=== PATIENT | female | born 1970 | race American Indian/Alaskan Native ===

== ENCOUNTER 2017-10-03 10:10 | Outpatient (CLI) | payer BC ==
--- NOTE | 2017-10-06 11:54 | Mammography Report ---
Screening tomomammogram and 2-D mammography: 2-D images are compared to a comparable standard mammogram obtained in May 2013. The overall breast pattern is heterogeneous, symmetric, unremarkable, and generally unchanged. On the tomomammograms no additional findings in the right breast. A small circumscribed nodule identified in the lateral images on the left is not identified in the CC images and has no suspicious characteristics. CAD used. Impression: No suspicious findings. Generally stable pattern. Recommendation: Annual mammogram followup. BI-RADS CATEGORY: 1 = Negative ACR BI-RADS MAMMOGRAPHIC CODES: 0 = Needs additional imaging evaluation; 1 = Negative; 2 = Benign; 3 = Probably benign; 4 = Suspicious; 5 = Malignant; 6 = Known biopsy-proven malignancy COMMENT: 1. Dense breast tissue, i.e., adenosis, fibrocystic changes, etc., may obscure an underlying neoplasm. 2. Approximately 10% of cancers are not detected with mammography. 3. A negative mammography report should not delay biopsy if a clinically suspicious mass is present.
== END 2017-10-03 10:11 | disposition home or self-care (01) ==
LOC: MAMMO 10:10
PROVIDERS: ATTEND Obstetrics & Gynecology
DX: Z12.31 Encounter for screening mammogram for malignant neoplasm of breast (principal)
CPT/HCPCS: 77063; 77067

== ENCOUNTER 2018-02-17 06:11 | Observation (INO) | payer BC ==
--- NOTE | 2018-02-12 12:46 | Anesthesia Consultation ---
Anesthesia Consult and Med Hx Date of service: 02/12/18 - Airway Anesthetic Teeth Evaluation: Good ROM Head & Neck: Adequate Mental/Hyoid Distance: Adequate Mallampati Class: Class II Intubation Access Assessment: Good - Pulmonary Exam CTA: Yes - Cardiac Exam Cardiac Exam: RRR - Pre-Operative Health Status ASA Pre-Surgery Classification: ASA3 Proposed Anesthetic Plan: General Nerve Block: TAP - Pulmonary Hx Asthma: Yes (Seasonal, last treated several mos ago) - Cardiovascular System Hx Hypertension: Yes Hx Cardia Arrhythmia: Yes - Central Nervous System Hx Psychiatric Problems: Yes - Hematic Hx Anemia: Yes - Other Systems Hx Alcohol Use: Yes (Occas) Hx Cancer: No
[2018-02-12 12:51] LABS: Hematocrit 38.7 % (30.3-42.9); Hemoglobin 12.6 gm/dl (10.1-14.3); Mean Corpuscular HGB Conc 33 % (30-34); Mean Corpuscular Hemoglobin 27 pg (28-32); Mean Corpuscular Volume 83 fl (79-97); Platelet Count 218 K/mm3 (140-440); Red Blood Count 4.65 M/mm3 (3.65-5.03); Red Cell Distribution Width 24.9 % (13.2-15.2)
[2018-02-12 13:14] LABS: BUN/Creatinine Ratio 14; Blood Urea Nitrogen 11 mg/dL (7-17); Calcium 9.7 mg/dL (8.4-10.2); Hemolysis Index 17
[2018-02-12 14:21] LABS: Basophils % (Manual) 0 % (0.0-1.8); Eosinophils % (Manual) 0 % (0.0-4.3); Total Cells Counted 100
[2018-02-12 14:22] LABS: Anisocytosis 2+; Ovalocytes Few; Poikilocytosis 1+; Tear Drop Cells Rare
[2018-02-12 14:23] LABS: Schistocytes Rare
[2018-02-12 14:25] LABS: Platelet Estimate Cons
--- NOTE | 2018-02-16 19:19 | History and Physical Report ---
History of Present Illness Date of examination: 02/05/18 Chief complaint: Menorrhagia, anemia and fibroids History of present illness: Past History : 4 Term Births: 4 Living Children: 4 Para: 4 # 1 Delivery date: 1989 Comments: [id number] [employer] History Operations: Tubal Ligation Abnormal PAP: positive Uterine Anomaly: negative GASPER Exposure: negative Infection History HIV Risk Eval: no Personal hx. of genital herpes: no Hx of STD: chlamydia Other: trichomonas Active Medications (reviewed today): IBUPROFEN 800 MG ORAL TABLET (IBUPROFEN) 1 po TID (PRN) OXYCODONE-ACETAMINOPHEN 5-325 MG ORAL TABLET (OXYCODONE-ACETAMINOPHEN) 1-2po q6h prn ASPIRIN 81 MG ORAL TABLET (ASPIRIN) AMLODIPINE BESYLATE TABLET (AMLODIPINE BESYLATE TABS) FLECAINIDE ACETATE TABLET (FLECAINIDE ACETATE TABS) FERROUS SULFATE 325 (65 Fe) MG ORAL TABLET (FERROUS SULFATE) 1 po qd Current Allergies (reviewed today): No known allergies Past Medical History: Reviewed history from 01/07/2018 and no changes required: Neurologic Disorder migraines no auras Hypertension Borderline diabetes vitamin d deficiency Arrhythmia Atrial fibrillation (06/2017) 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 - Entered On: 07/19/2015 Other family member - Has No Family History of Biliary Tract Cancer - Entered On : 12/01/2017 Other family member - Has No Family History of Brain Cancer - Entered On: 2017 Other family member - Has No Family History of Spontaneous DVT-PE - Entered On: 12/01/2017 Other family member - Has No Family History of Kidney/Urinary Tract Cancer - Entered On: 12/01/2017 Other family member - Has No Family History of Pancreatic Cancer - Entered On: Other family member - Has No Family History of Stomach Cancer - Entered On: 2017 Other family member - Has No Family History of Small Bowel Cancer - Entered On: 12/01/2017 Other family member - Has No Family History of Uterine Cancer - Entered On: 2017 Aunt - Has Family History Colon Cancer - Entered On: 01/07/2018 Aunt - Has Family History Breast Cancer - maternal - Entered On: 01/07/2018 General Comments - FH: No Family History of DVT/PE on OCP Family History of Hypertension father, brothers Social History: Reviewed history from 08/30/2016 and no changes required: Patient is Smoking History: Patient has never smoked. Risk Factors: Smoked Tobacco Use: Never smoker Smokeless Tobacco Use: Never Passive smoke exposure: no Drug use: no HIV high-risk behavior: no Alcohol use: yes Exercise: yes Seatbelt use: 100 % Mammogram History: Date of Last Mammogram: 04/28/2016 PAP Smear History: Date of Last PAP Smear: 10/01/2017 Previous Tobacco Use: Signed On - 01/07/2018 Smoked Tobacco Use: Never smoker Smokeless Tobacco Use: Never Passive smoke exposure: no Drug use: no HIV high-risk behavior: no Caffeine use: 1 drinks per day Previous Alcohol Use: Signed On - 01/07/2018 Alcohol use: yes Type: occ Drinks per day: social Exercise: yes Times per week: 4 Type of Exercise: walk Seatbelt use: 100 % Colonoscopy History: Date of Last Colonoscopy: 09/07/2015 Mammogram History: Date of Last Mammogram: 04/28/2016 PAP Smear History: Date of Last PAP Smear: 10/01/2017 Review of Systems General Denies fever, chills, sweats, anorexia, fatigue, weakness, malaise, weight loss and sleep disorder. Complains of menorrhagia and abnormal vaginal bleeding. Denies vaginal discharge, incontinence, dysuria, hematuria, urinary frequency, amenorrhea, pelvic pain, genital sores, decreased libido, painful periods, painful sex, urinary urgency, hot flashes, vaginal dryness, vaginal itching and vaginal odor. CV Denies chest pains, palpitations, syncope, dyspnea on exertion, orthopnea, PND and peripheral edema. Endo Denies cold intolerance, heat intolerance, polydipsia, polyphagia, polyuria and unusual weight change. Heme Denies abnormal bruising, bleeding and enlarged lymph nodes. Physical Exam Appearance: well developed, well nourished, no acute distress Other Exams Lungs: no rales, rhonchi, or wheezes Heart: S1, S2, no murmur, rub, or gallop Abdomen: soft, non-tender, no masses Skin: no ulcers, xanthomas Genitourinary Exam Vulva: normal, no lesions or discharge Urethral meatus: normal size and location, no lesions or discharge Urethra: no discharge Bladder: no cystocele Vagina: normal appearance, no discharge, lesions. No evidence of cystocele or rectocele. Cervix: normal appearance, no lesions, no discharge Uterus: fixed; Uterus Size: 15-16weeks Adnexa: no masses or tenderness Impression & Recommendations: Problem # 1: EXCESSIVE OR FREQUENT MENSTRUATION (ICD-626.2) (TWF97-Y20.0) Diagnosis explained to patient . Questions answered. Discussed with patient various medical and surgical therapies common for treatment: Hormonal/medical therapy,endometrial ablation or hysterectomy. She desires to proceed with hysterectomy Consent reviewed and signed . Possible laparoscopy or laparotomy explained to patient. The risks and alternatives for this surgery were reviewed with the patient. She was informed of possible bleeding, infection, injury to bowel, bladder, ureters or other adjacent organs. She was informed due to her family history she may be at higher risk than the general population for developing ovarian cancer. She has again declined counseling and testing for hereditary cancers. She desires ovarian conservation. She was informed she may require surgery later to have her ovaries removed for a benign or mailgnant condition. She was also informed she will not be able to get after her uterus has be removed. The patient was instructed/informed the following: Stop taking ASA now if ok with her environmental monitoring specialist. The normal length of hospital stay for this procedure. Nothing to eat or drink after midnight the evening prior to surgery. Clear liquids the day before surgery. Fleets enema the day prior to surgery. Pre-op instruction sheets given. Wound care instructions given. Infection precautions reviewed, patient to call for any signs or symptoms of infection. The usual discomforts associated with this procedure were detailed. Proper use of pain medicines was reviewed. Patient was given ample opportunity to have all her questions answered before signing informed consent. Problem # 2: Fibroids, uterus (ICD-218.9) (QJS93-X13.9) Diagnosis explained to patient . Questions answered. Discussed with patient various medical, surgical and radioloigal therapies common for treatment: Hormonal/medical therapy, fibroid embolization, removal of fibroids or hysterectomy Problem # 3: Chronic atrial fibrillation (PWT13-P41.2) Medications Added to Medication List This Visit: 1) Ibuprofen 800 Mg Oral Tablet (Ibuprofen) .... 1 po tid (prn) 2) Oxycodone-acetaminophen 5-325 Mg Oral Tablet (Oxycodone-acetaminophen) .... 1-2po q6h prn Prescriptions: IBUPROFEN 800 MG ORAL TABLET (IBUPROFEN) 1 po TID (PRN) #30 x 0 Entered and Authorized by: Roxana Dinero MD Method used: Print then Give to Patient RxID: [id number] OXYCODONE-ACETAMINOPHEN 5-325 MG ORAL TABLET (OXYCODONE-ACETAMINOPHEN) 1-2po q6h prn #20 x 0 Entered and Authorized by: Roxana Dinero MD Method used: Print then Give to Patient RxID: [id number] Medications and Allergies Allergies Allergy/AdvReac Type Severity Reaction Status Date / Time No Known Allergies Allergy Unverified 02/10/18 11:31 Home Medications Medication Instructions Recorded Confirmed Last Taken Type Aspirin [Adult Low Dose Aspirin EC] 81 mg PO DAILY 02/10/18 02/10/18 02/01/18 History Ferrous Sulfate [Iron] 325 mg PO BID 02/10/18 02/10/18 Unknown History Flecainide 50 mg PO BID 02/10/18 02/10/18 Unknown History hydroCHLOROthiazide [HCTZ] 25 mg PO QDAY 02/10/18 02/10/18 Unknown History Active Meds: Active Medications Famotidine (Pepcid) 20 mg PO PREOP NR Stop: 02/17/18 23:59 Lactated Ringer's (Lactated Ringers) 1,000 mls @ 100 mls/hr IV DIRECT LUZ Cefazolin Sodium (Ancef/Sterile Water 2 Gm/20 Ml) 2 gm in 20 mls @ 80 mls/hr IV PREOP NR; Protocol Midazolam HCl (Versed) 2 mg IV PREOP NR Stop: 02/17/18 23:59 Exam Vital Signs Temp Pulse Resp BP 98.9 F 56 L 18 128/78 02/12/18 12:25 02/12/18 12:25 02/12/18 12:25 02/12/18 12:25 Results - Labs 02/12/18 12:34 02/12/18 12:34 Assessment and Plan - Patient Problems (1) Excessive and frequent menstruation with irregular cycle Status: Acute (2) Fibroids Status: Acute (3) Chronic a-fib Status: Chronic (4) Borderline diabetes mellitus Status: Chronic (5) History of anemia Status: Chronic
[~2018-02-17 06:11] MED LIST: ANCEF/STERILE WATER 2 GM/20 ML 2 GM/20 ML SYRINGE IV NR
[2018-02-17] MEDS ORDERED: NACL BACTERIOSTATIC INFILTRATI ONE (06:31)
[2018-02-17] MEDS ORDERED: SUBLIMAZE ONE ×2 (07:04→07:41)
[2018-02-17] MEDS ORDERED: VERSED ONE (07:04)
[2018-02-17] MEDS ORDERED: DECADRON ONE ×2 (07:05→10:22)
[2018-02-17] MEDS ORDERED: MARCAINE 0.5% INFILTRATI ONE (07:05)
[2018-02-17] MEDS ORDERED: XYLOCAINE 1% 20 mL ONE (07:05)
[2018-02-17] MEDS ORDERED: NEURONTIN ONE (07:06)
[2018-02-17] MEDS ORDERED: PEPCID IV ONE (07:06)
[2018-02-17] MEDS ORDERED: PEPCID ONE (07:13)
[2018-02-17] MEDS ORDERED: LACTATED RINGERS 0 ML ONE (07:13)
[2018-02-17] MEDS ORDERED: LACTATED RINGERS 1,000 ML ONE ×2 (07:17→10:58)
[2018-02-17] MEDS ORDERED: XYLOCAINE MPF 2% ONE (07:40)
[2018-02-17] MEDS ORDERED: ZOFRAN ONE (07:40)
[2018-02-17] MEDS ORDERED: ZEMURON IV ONE (07:40)
[2018-02-17] MEDS ORDERED: DIPRIVAN 10 MG/ML IV ONE (07:41)
[2018-02-17] MEDS ORDERED: NEOSPORIN GU IR ONE ×2 (07:42→09:20)
[2018-02-17] MEDS ORDERED: DEMEROL IV PRN (07:53)
[2018-02-17] MEDS ORDERED: ZOFRAN IV PRN ×2 (07:53→14:49)
--- NOTE | 2018-02-17 07:53 | Anesthesia Day of Surgery ---
Anesthesia Day of Surgery - Day of Surgery Patient Examined: Yes Patient H&P Reviewed: Yes Patient is NPO: Yes
[2018-02-17] MEDS ORDERED: WATER FOR IRRIG STERILE IR ONE (09:20)
[2018-02-17] MEDS ORDERED: NACL 0.9% IR ONE (09:20)
[2018-02-17] MEDS ORDERED: BLOXIVERZ ONE (10:22)
[2018-02-17] MEDS ORDERED: ROBINUL ONE (10:22)
--- NOTE | 2018-02-17 10:56 | Post Anesthesia Evaluation ---
- Post Anesthesia Evaluation Patient Participated: Yes Airway Patent: Yes Stable Respiratory Function: Yes Nausea/Vomiting: No Temp > 96.8F: Yes Pain Manageable: Yes Adequeate Hydration: Yes Anesthesia Complications: No
[2018-02-17] MEDS: DILAUDID IV PRN ×2 (11:03→11:19)
--- NOTE | 2018-02-17 11:16 | Post Operative Note ---
Pre-op diagnosis: EXCESSIVE OR FREQUENT MENSTRUATION (ICD-626.2) (QNC98-I43.0) Post-op diagnosis: same Procedure: RATH Anesthesia: GETA Surgeon: MICHAEL ALFARO Estimated blood loss: 50-100ml Specimen disposition: to lab Condition: stable Disposition: PACU
--- NOTE | 2018-02-17 11:57 | Operative Report ---
Operative Report Operative Report: Date: 02/17/2018 Preoperative diagnosis: 1. Menorrhagia 2. Uterine fibroids 3. History of severe anemia 4. Arrhythmia Atrial fibrillation (06/2017) with episodes of bradycardia ([facility]) 5. Borderline diabetes 6. Body mass index 33.3 Postoperative diagnosis: 1. Menorrhagia 2. Uterine fibroids 3. History of severe anemia 4. Arrhythmia Atrial fibrillation (06/2017) with episodes of bradycardia ([facility]) 5. Borderline diabetes 6. Body mass index 33.3 Procedure: Robot-assisted laparoscopic total hysterectomy with bilateral salpingectomy and lysis of adhesions Surgeon: Roxana Dinero MD Drafter Engineering: Tawana Pratt Anesthesiologist: Riana Arambula M.D. Anesthesia: General endotracheal anesthesia EBL: Approximately 50 mL Findings: Exam under anesthesia was unremarkable uterus measured approximately 15 weeks. Uterus sounded to 11 cm. Uterus Multiple uterine fibroids with dilated distal fallopian tubes bilaterally grossly normal ovaries. Procedure: Patient was taken to the OR and placed in the supine position. General anesthesia was induced and an oral gastric tube was placed. Her neck and head were placed on foam support. Foam eye protection with goggles were secured in place. Then foam face protection was placed and secured. Foam shoulder pads were then positioned on her shoulders for Trendelenburg positioning. She was then placed in dorsolithotomy position. Exam under anesthesia as above. The abdomen and vagina were then prepped and draped in the usual sterile fashion. Timeout was performed. A Guardado catheter was inserted into the bladder with drainage of clear yellow urine. The operative speculum was introduced into the vagina and the anterior lip of the cervix was grasped with single-toothed tenaculum. The uterus was sounded to 11 cm. The cervix was progressively dilated to allow the large V care uterine manipulator. The bulb of the manipulator was inflated and the speculum and tenaculum were removed. The cup of the manipulator was placed around the cervix and the blue occluder of the manipulator was properly positioned in the vagina. A laparotomy sponge that was saturated with a solution of polymyxin and saline was placed in the vagina to ensure pneumoperitoneum. Sterile gloves were placed and attention was turned to the abdomen. A 10 mm vertical supraumbilical incision was made approximately 10 cm superior to the elevated fundus of the uterus. A 12 mm trocar with the laparoscope and camera attached was introduced through this incision under direct visualization. The abdomen was insufflated. No obvious bowel, bladder, ureteral, or major vascular injury was noted. The patient was then placed in steep Trendelenburg position and the following trochars were placed under direct visualization: 8 mm robotic trochars were placed through incisions made in the bilateral midclavicular lower abdominal region approximately 10 cm lateral and approximately 2 cm below the midline incision, and a 5 mm trocar was placed through an incision made in the right lower lateral pelvis approximately 2 cm superior to the iliac crest. The 10 mm laparoscope was then replaced by a 5 mm laparoscope that was placed through the 5 millimeter lateral trocar. The 12 mm trocar was then removed in the [address] fascial closure device was placed through the incision and a 0 Vicryl was placed through the fascia. Once the suture was secured the 12 mm trocar was reintroduced. Once the trochars were in the appropriate positions, the da Mily robot system was engaged. The EndoShears and bipolar device was placed through the 8 mm trochars and positioned then attention was turned to the console. The uterus was elevated and bilateral salpingectomy was performed. Each tube was removed through the 5 mm trocar and sent to pathology in separate containers. Then the utero-ovarian ligaments were clamped. cauterized and incised bilaterally using 30 W of energy. Then the round ligaments were clamped , cauterized and incised bilaterally. The anterior leaf of the broad ligament was elevated and careful blunt and sharp dissection the bladder flap was created and dissected away from the lower uterine segment and cervix. The posterior leaf of the broad ligament was dissected away from the uterine vessels. The cup of the uterine manipulator was palpated both anteriorly and posteriorly. Course of the ureters was visualized and was confirmed to be away from the operative field. The uterine vessels were then clamped and cauterized bilaterally. Blanching of the uterus was then noted. Attention was again turned to the anterior lower uterine segment and the bladder was confirmed to be away from the operative field. Then attention was turned again to the posterior where the cup of the manipulator was palpated and a colpotomy was performed down to the cup. The incision was extended in the lateral position the uterine vessels that were again clamped and cauterized and incised. Continuing along the cup of the manipulator in a circumferential manner the colpotomy was completed. The uterus and cervix were then removed through the vaginal incision. The pelvis was irrigated with warm normal saline. A moist laparotomy sponge was placed in the vagina to maintain pneumoperitoneum. The vagina cuff was reapproximated using V LOC 180 suture in a simple running stitch. Then a J stitch was performed to secure the suture. Again the pelvis was copiously irrigated with polymixin in warm normal saline. The laparotomy sponge was removed from the vagina. No bowel, bladder, ureteral or major vascular injury was noted. Once hemostasis was noted, John was applied to the operative field to ensure hemostasis. Then Interceed was applied to the operative field to decrease formation of adhesions. Again hemostasis was noted. Grossly normal appendix was noted. Then the instruments were removed, the robot was disengaged. The 12 mm trocar was removed and the fascia was ligated with the 0 Vicryl suture that was placed at the beginning of the procedure. The patient was taken out of Trendelenburg position, the abdomen was desufflated, the remaining trochars were removed. Incisions were reapproximated using 4-0 Vicryl in a subcuticular manner. ISurgiseal was placed over the incisions. The vagina was then inspected, no bleeding was noted and clear yellow urine was draining into the Guardado bag from the bladder at the end of the procedure. Patient was taken to recovery room in stable condition.
--- NOTE | 2018-02-17 12:32 | Event Note ---
Date: 02/17/18 Patient resting in bed wit her daughter at the bedside. Procedure explained, questions answered. States she has had pain and swelling in her RLE ~2weeks, will proceed with (B)LE dopplers. She voiced understanding and agrees with course of care.
[2018-02-17] MEDS ORDERED: VERSED IV NR (13:00)
[2018-02-17] MEDS ORDERED: PEPCID PO NR (13:00)
[2018-02-17] MEDS ORDERED: LACTATED RINGERS 1,000 ML IV SCH (13:00)
[2018-02-17] MEDS ORDERED: ZOFRAN ODT PO PRN (14:49)
[2018-02-17] MEDS ORDERED: MORPHINE IV PRN (14:49)
[2018-02-17] MEDS ORDERED: TYLENOL PR PRN (14:49)
[2018-02-17] MEDS ORDERED: REGLAN IV PRN (14:49)
[2018-02-17] MEDS ORDERED: REGLAN PO PRN (14:49)
--- NOTE | 2018-02-17 15:02 | Vascular Lab Report ---
LEFT UPPER EXTREMITY VENOUS DUPLEX: REASON FOR EXAM: Deep venous thrombosis COMMENTS ON THE LEFT: All arm veins visualized are freely compressible without evidence of internal echogenicity. The subclavian and internal jugular veins are free of thrombus. Flow is spontaneous and phasic throughout. COMMENTS ON THE RIGHT: A limited study of the jugular and subclavian veins shows no evidence of thrombus. IMPRESSION: No evidence of acute or chronic deep venous thrombosis in the left upper extremity. There appears to be a patent arterial venous graft in the left upper extremity as well.
[2018-02-17] MEDS: NACL 0.45% 1000 ML 1,000 ML IV SCH (19:00)
[2018-02-17] MEDS: TORADOL IV SCH (19:00)
--- NOTE | 2018-02-17 21:14 | Progress Note ---
Assessment and Plan - Patient Problems (1) Excessive and frequent menstruation with irregular cycle Current Visit: No Status: Resolved (2) Fibroids Current Visit: No Status: Resolved (3) Chronic a-fib Current Visit: No Status: Chronic (4) Borderline diabetes mellitus Current Visit: No Status: Chronic (5) History of anemia Current Visit: No Status: Chronic (6) Bradycardia Current Visit: Yes Status: Chronic (7) Chest pain Current Visit: Yes Status: Acute Qualifiers: Chest pain type: unspecified Qualified Code(s): R07.9 - Chest pain, unspecified Plan to address problem: When she lies flat, occurs when she's at home as well. EKG ordered (8) Difficulty breathing Current Visit: Yes Status: Acute Plan to address problem: O2sat 100% on 3LNC, will proceed with CXR d/t cough with inhalation. Subjective Date of service: 02/17/18 Patient Reports: Positive: other (States some Chest pain and difficulty breathing when she lies flat). Negative: nausea Objective Vital Signs - 12hr 02/17/18 02/17/18 02/17/18 10:35 10:40 10:45 Temperature 97.9 F Pulse Rate 57 L 53 L 51 L Respiratory 16 10 L 13 Rate Blood Pressure 96/50 99/54 103/62 Blood Pressure [Left Arm] O2 Sat by Pulse 99 100 100 Oximetry 02/17/18 02/17/18 02/17/18 11:00 11:03 11:15 Temperature Pulse Rate 46 L 49 L Respiratory 14 12 14 Rate Blood Pressure 116/74 111/68 Blood Pressure [Left Arm] O2 Sat by Pulse 100 100 Oximetry 02/17/18 02/17/18 02/17/18 11:16 11:19 11:30 Temperature Pulse Rate 42 L Respiratory 12 14 14 Rate Blood Pressure 112/63 Blood Pressure [Left Arm] O2 Sat by Pulse 100 Oximetry 02/17/18 02/17/18 02/17/18 11:45 11:49 12:00 Temperature 97.5 F L Pulse Rate 42 L 42 L Respiratory 12 14 12 Rate Blood Pressure 114/63 117/72 Blood Pressure [Left Arm] O2 Sat by Pulse 100 100 Oximetry 02/17/18 02/17/18 02/17/18 12:23 12:24 17:04 Temperature 97.4 F L Pulse Rate 44 L 44 L 54 L Respiratory 18 Rate Blood Pressure 104/63 Blood Pressure [Left Arm] O2 Sat by Pulse 100 100 100 Oximetry 02/17/18 02/17/18 02/17/18 17:05 19:00 20:00 Temperature 97.4 F L Pulse Rate 59 L Respiratory 20 20 Rate Blood Pressure Blood Pressure 104/63 [Left Arm] O2 Sat by Pulse 100 Oximetry 02/17/18 20:14 Temperature 98.2 F Pulse Rate 51 L Respiratory 20 Rate Blood Pressure 118/66 Blood Pressure [Left Arm] O2 Sat by Pulse 100 Oximetry - General physical appearance well developed, well nourished, no distress - Respiratory normal expansion, normal respiratory effort, clear to auscultation - Abdomen soft, bowel sounds normal - Psychiatric oriented to time, oriented to person, oriented to place - Labs 02/12/18 12:34 02/12/18 12:34
--- NOTE | 2018-02-17 21:53 | XRay Report ---
FINAL REPORT PROCEDURE: XR CHEST ROUTINE 2V TECHNIQUE: PA and lateral chest radiographs were obtained. CPT 72311 HISTORY: Cough COMPARISON: No prior studies are available for comparison. FINDINGS: Heart: Normal. Mediastinum/Vessels: Normal. Lungs/Pleural space: Bilateral lungs are free of infiltrates or mass lesions. Mild degree bilateral pleural effusions are identified.. Bony thorax: Mild degree S shaped scoliosis is noted.. Other: IMPRESSION: Mild degree bilateral pleural effusions No acute pulmonary infiltrates..
[2018-02-17] MEDS ORDERED: FLECAINIDE 50 MG PO SCH (22:00)
--- NOTE | 2018-02-17 22:08 | Event Note ---
Date: 02/17/18 Feels better +bs, still with clear yellow urine in rodríguez CXR: mild pleural effusion (B) EKG: sinus bradycardia o/w normal CXR, EKG an Doppler studies discussed with patient Questions answered, will observe closely tonight, ? cardiology consultation if CP/SOB recurs. Patient voiced understanding and agrees with plan of care
[2018-02-17] MEDS: TYLENOL PO SCH ×2 (22:34→23:29)
[2018-02-17] MEDS: TAMBOCOR PO SCH (22:35)
[2018-02-17] MEDS: ANCEF/NS 1 GM/50 ML 1 GM/50 ML BAG IV SCH (22:36)
[2018-02-18] MEDS: TORADOL IV SCH ×2 (03:24→13:59)
[2018-02-18 04:39] LABS: Hematocrit 36.6 % (30.3-42.9); Hemoglobin 11.6 gm/dl (10.1-14.3)
[2018-02-18 05:18] LABS: BUN/Creatinine Ratio 11; Blood Urea Nitrogen 9 mg/dL (7-17); Calcium 8.1 mg/dL (8.4-10.2); Hemolysis Index 6
[2018-02-18] MEDS: ANCEF/NS 1 GM/50 ML 1 GM/50 ML BAG IV SCH (06:09)
[2018-02-18] MEDS: NACL 0.45% 1000 ML 1,000 ML IV SCH (06:09)
[2018-02-18] MEDS: TYLENOL PO SCH ×2 (06:13→14:43)
[2018-02-18] MEDS ORDERED: HCTZ PO SCH (08:00)
--- NOTE | 2018-02-18 08:05 | Discharge Summary ---
Providers - Providers Date of Admission: 02/17/18 11:01 Date of discharge: 02/18/18 Attending physician: MICHAEL ALFARO Primary care physician: GRETA MOON Hospitalization Condition: Good Pertinent studies: Dopplers (B)LE, EKG, CXR Procedures: RATH with (B) salpingectomy Hospital course: Patient complained of mild Chest pain and difficulty breathing the night of surgery. Her evaluation was unremarkable, also she had some decreased UO that resolved, documented UO ~50ml/hr since her arrival to the floor. This am no further SOB or CP, ambulating well , no other complaints. Disposition: DC-01 TO HOME OR SELFCARE - Discharge Diagnoses (1) Excessive and frequent menstruation with irregular cycle Status: Resolved (2) Fibroids Status: Resolved (3) Chronic a-fib Status: Chronic (4) Borderline diabetes mellitus Status: Chronic (5) History of anemia Status: Chronic (6) Bradycardia Status: Chronic (7) Chest pain Status: Resolved Qualifiers: Chest pain type: unspecified Qualified Code(s): R07.9 - Chest pain, unspecified (8) Difficulty breathing Status: Resolved Core Measure Documentation - Palliative Care Palliative Care/ Comfort Measures: Not Applicable - Core Measures Any of the following diagnoses?: none Exam - Constitutional Vitals: Temp Pulse Resp BP Pulse Ox 98.6 F 51 L 51 H 100/41 100 02/18/18 07:25 02/18/18 07:25 02/18/18 07:25 02/18/18 07:25 02/18/18 07:25 General appearance: Present: no acute distress - Neck Neck: Present: supple - Respiratory Respiratory effort: normal Respiratory: bilateral: CTA - Cardiovascular Rhythm: other (bradycardia) - Extremities Extremities: no ischemia, No edema (nontender, no swelling) - Abdominal General gastrointestinal: Present: soft, non-tender, non-distended, normal bowel sounds Female genitourinary: Present: deferred (denies vaginal bleeding) - Integumentary Integumentary: Present: clear (Incisions without s/s infection. Clean, dry and intact), warm, dry - Musculoskeletal Musculoskeletal: strength equal bilaterally - Psychiatric Psychiatric: appropriate mood/affect, intact judgment & insight Plan Activity: other (No sex, no driving, ambulate ~1mile on your property a day. Void frequently. Use you incentive spirometer every hour while awake) Weight Bearing Status: Weight Bear as Tolerated Diet: low fat, low cholesterol, low salt (Eat small meals frequently) Wound: open to air, keep clean and dry Special Instructions: no heavy lifting (greater that 25lbs) Additional Instructions: May restart ASA Follow up with: MICHAEL ALFARO MD [Staff Physician] - 7 Days (As scheduled) GRETA MOON NP [Primary Care Provider] - 3 Days
[2018-02-18] MEDS: TAMBOCOR PO SCH (09:10)
[2018-02-18] MEDS ORDERED: PROTONIX IV SCH (10:00)
[2018-02-18 11:46] VITALS: BP 97/55
[2018-02-18] MEDS ORDERED: PERCOCET 5/325 PO PRN (14:00)
== END 2018-02-18 15:15 | disposition home or self-care (01) ==
LOC: OR 06:11 → 3B 11:01
PROVIDERS: ADMIT Obstetrics & Gynecology; ATTEND Obstetrics & Gynecology
DX: N92.0 Excessive and frequent menstruation with regular cycle (principal); D25.9 Leiomyoma of uterus, unspecified; I48.91 Unspecified atrial fibrillation; E11.9 Type 2 diabetes mellitus without complications; Z68.33 Body mass index [BMI] 33.0-33.9, adult; Z86.2 Personal history of diseases of the blood and blood-forming organs and certain disorders involving the immune mechanism
CPT/HCPCS: 36415; 58573; 64450; 71046; 80048; 81025; 82962; 85007; 85014; 85018; 85025; 86850; 86900; 86901; 88302; 88304; 88305; 88307; 93005; 93010; 93970; 96365; 96366; 96375; 96376; A4217; C1765; C9113; G0378; J0690; J0735; J1100; J1170; J1885; J2250; J2405; J2704; J2710; J3010; J7120; S2900

== ENCOUNTER 2018-07-30 03:06 | Emergency (ER) | payer BC ==
[2018-07-30] MEDS ORDERED: ASPIRIN PO ONE (03:17)
[2018-07-30 03:58] LABS: Basophils % (Auto) 0.4 % (0.0-1.8); Eosinophils % (Auto) 0.6 % (0.0-4.3); Hematocrit 43.1 % (30.3-42.9); Lymphocytes # (Auto) 1.2 K/mm3 (1.2-5.4); Lymphocytes % (Auto) 19.4 % (13.4-35.0); Mean Corpuscular HGB Conc 35 % (30-34); Mean Corpuscular Volume 84 fl (79-97); Monocytes # (Auto) 0.4 K/mm3 (0.0-0.8); Monocytes % (Auto) 5.9 % (0.0-7.3); Platelet Count 209 K/mm3 (140-440); Red Blood Count 5.12 M/mm3 (3.65-5.03); Red Cell Distribution Width 15.9 % (13.2-15.2)
[2018-07-30 04:20] LABS: BUN/Creatinine Ratio 13; Blood Urea Nitrogen 12 mg/dL (7-17); Calcium 9.8 mg/dL (8.4-10.2); Hemolysis Index 7
[2018-07-30] MEDS ORDERED: K-DUR PO ONE (04:21)
[2018-07-30 04:26] LABS: INR 1.1 (0.87-1.13)
--- NOTE | 2018-07-30 04:55 | XRay Report ---
PROCEDURE: XR CHEST 1V AP TECHNIQUE: AP portable chest radiograph HISTORY: Chest Pain COMPARISONS: 05/01/2018 FINDINGS: No mediastinal shift. Cardiac silhouette is not enlarged. No pneumothorax, effusion, or focal pulmona ry opacity identified. No acute skeletal findings. IMPRESSION: No acute pulmonary finding identified. This document is electronically signed by Manjit Wilks MD., July 30 2018 04:52:54 AM ET
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
[2018-07-30 06:38] VITALS: BP 108/67
== END 2018-07-30 06:41 | disposition home or self-care (01) ==
LOC: ED 03:06
DX: R07.9 Chest pain, unspecified (principal); I10 Essential (primary) hypertension; J45.909 Unspecified asthma, uncomplicated
CPT/HCPCS: 36415; 71045; 80048; 83735; 84484; 85025; 85610; 93005; 93010

== ENCOUNTER 2019-05-22 01:04 | Emergency (ER) | payer BC ==
[2019-05-22 01:26] VITALS: BP 151/92
== END 2019-05-22 02:00 | disposition left against medical advice (07) ==
LOC: ED 01:04
DX: R07.89 Other chest pain (principal); Z53.21 Procedure and treatment not carried out due to patient leaving prior to being seen by health care provider
CPT/HCPCS: 93005; 93010